=== PATIENT | male | born 1970 | race African-American/Black ===

== ENCOUNTER 2018-05-05 05:27 | Inpatient (IN) | payer OTHER ==
[~2018-05-05] VITALS: Ht 190.5 cm; Wt 140.8 kg
--- NOTE | 2018-05-05 05:49 | PHYS DOC ---
Adult General Chief Complaint Chief Complaint: TOE PROBLEM HPI HPI 47-year-old male presents via EMS with right great toe swelling and drainage. The patient was recently [facility]. While in penitentiary, but he developed an infection in his lateral right great toe. He believes the wound started as a ruptured blister from running in boots. He was treated with oral antibiotics 2 different times. The wound was also being lanced by a pit clerk. The patient is unsure what the antibiotic was called. It has been swollen and painful for "several weeks". He did not realize that it was having drainage until yesterday. He denies fever or chills. The patient is a diabetic on metformin and insulin. He also has hypertension for which he takes 3 medications. He was discharged from penitentiary with 30 day supply of each of these and states taking them daily as prescribed. He was not discharged with any antibiotics. He states that this toe was x-rayed in February and he did not have osteomyelitis at that time. Review of Systems Review of Systems Constitutional: Denies fever or chills [] Eyes: Denies change in visual acuity, redness, or eye pain [] HENT: Denies nasal congestion or sore throat [] Respiratory: Denies cough or shortness of breath [] Cardiovascular: No additional information not addressed in HPI [] GI: Denies abdominal pain, nausea, vomiting, bloody stools or diarrhea [] : Denies dysuria or hematuria [] Musculoskeletal: Denies back pain or joint pain [] Integument: Lesion on right great toe[] Neurologic: Denies headache, focal weakness or sensory changes [] Endocrine: Denies polyuria or polydipsia [] All other systems were reviewed and found to be within normal limits, except as documented in this note. Allergies Allergies Allergies Coded Allergies Type Severity Reaction Last Updated Verified No Known Drug Allergies 05/05/18 No Physical Exam Physical Exam Constitutional: Well developed, well nourished, no acute distress, non-toxic appearance. [] HENT: Normocephalic, atraumatic, bilateral external ears normal, oropharynx moist, no oral exudates, nose normal. [] Eyes: PERRLA, EOMI, conjunctiva normal, no discharge. [] Neck: Normal range of motion, no tenderness, supple, no stridor. [] Cardiovascular:Heart rate regular rhythm, no murmur [] Lungs & Thorax: Bilateral breath sounds clear to auscultation [] Abdomen: Bowel sounds normal, soft, no tenderness, no masses, no pulsatile masses. [] Skin: Lateral right great toe is erythematousand swollen with an open wound and purulent drainage. It is hot to the touch.[] Back: No tenderness, no CVA tenderness. [] Extremities: No tenderness, no cyanosis, no clubbing, ROM intact, no edema. [] Neurologic: Alert and oriented X 3, normal motor function, normal sensory function, no focal deficits noted. [] Psychologic: Affect normal, judgement normal, mood normal. [] EKG EKG [] Radiology/Procedures Radiology/Procedures [] Impressions: My reading: I do not see obvious bony involvement from infection. Course & Med Decision Making Course & Med Decision Making Pertinent Labs and Imaging studies reviewed. (See chart for details) Labs are unremarkable. The patient does not have a fever. Given the fact that the patient is diabetic and he has failed 2 antibiotic regimens orally, I feel as though IV antibiotics are warranted. I discussed the patient with hospitalist , Dr. Shepard and he has agreed to admit the patient for further management. We will start him on vancomycin and Zosyn. The lesion is already spontaneously draining so an incision and drainage is not warranted at this time. [] Dragon Disclaimer Dragon Disclaimer This electronic medical record was generated, in whole or in part, using a voice recognition dictation system. Departure Departure: Referrals: PCP,JAVIER (PCP) NOMI MENENDEZ DO May 05, 2018 05:49
[2018-05-05 05:57] LABS: BASO # 0.1 x10^3/uL (0.0-0.2); BASO % 1 % (0-3); EOS # 0.1 x10^3/uL (0.0-0.7); EOS % 2 % (0-3); HEMATOCRIT 41.9 % (39.0-53.0); HEMOGLOBIN 14.5 g/dL (13.0-17.5); LYMPH # 1.5 x10^3/uL (1.0-4.8); LYMPH % 20 % (24-48); MEAN CORPUSCULAR HEMOGLOBIN 26 pg (25-35); MEAN CORPUSCULAR HGB CONC 35 g/dL (31-37); MEAN CORPUSCULAR VOLUME 76 fL (79-100); MONO # 0.9 x10^3/uL (0.0-1.1); MONO % 12 % (0-9); NEUT # 4.9 x10^3uL (1.8-7.7); NEUT % 66 % (31-73); PLATELET COUNT 230 x10^3/uL (140-400); RED BLOOD COUNT 5.56 x10^6/uL (4.30-5.70); RED CELL DISTRIBUTION WIDTH 16.8 % (11.5-14.5); WHITE BLOOD COUNT 7.5 x10^3/uL (4.0-11.0)
[2018-05-05 05:59] LABS: CALCIUM 8.8 mg/dL (8.5-10.1); CREATININE 0.9 mg/dL (0.7-1.3); GFR 109.9; POTASSIUM 3.5 mmol/L (3.5-5.1)
[2018-05-05] MEDS ORDERED: PIPERACILLIN/TAZOBACTAM 4.5 GM VIAL IV ONE (06:10)
[2018-05-05] MEDS ORDERED: IV NORMAL SALINE 50ML 50 ML ONE (06:10)
[2018-05-05] MEDS ORDERED: MORPHINE SULFATE 2 MG/ML DISP.SYRIN. IV PRN (06:15)
[2018-05-05] MEDS ORDERED: ONDANSETRON PF 4 MG/2 ML VIAL. IV PRN (06:15)
[2018-05-05] MEDS ORDERED: IV NORMAL SALINE 1,000ML 1,000 ML IV ONE (06:15)
--- NOTE | 2018-05-05 06:16 | RAD ---
Right great toe 3 views. HISTORY: Right great toe wound, evaluate for osteomyelitis. 3 views were taken of the right great toe. There is soft tissue swelling. There is no fracture or bony destructive process. There is a wound on the medial toe. IMPRESSION: 1. Soft tissue swelling right great toe. 2. No fracture or bony destructive process at this time. Electronically signed by: Connor Kitchen MD (05/05/2018 6:12 AM) [facility]
[2018-05-05] MEDS ORDERED: PIPERACILLIN/TAZOBACTAM 4.5 GM in IV NORMAL SALINE 50ML 50 ML IV ONE (06:30)
[2018-05-05] MEDS ORDERED: IV NORMAL SALINE 500ML 500 ML ONE (06:48)
[2018-05-05] MEDS ORDERED: VANCOMYCIN 1 GM VIAL. ONE ×2 (06:49→07:18)
[2018-05-05 07:00] VITALS: BP 142/66
[2018-05-05] MEDS ORDERED: VANCOMYCIN 2 GM in IV NORMAL SALINE 500ML 500 ML IV ONE ×2 (07:00→15:00)
[2018-05-05] MEDS ORDERED: DEXTROSE 50% 25 GM / 50ML DISP.SYRIN. IV PRN ×2 (10:00→12:45)
--- NOTE | 2018-05-05 10:38 | HP ---
ADMIT DATE: 05/05/2018 HISTORY OF PRESENT ILLNESS: This is a 47-year-old -[place] male patient, who currently at [facility], who came to the Emergency Room by the emergency medical service personnel with right great toe swelling and drainage. The patient was recently released from jail. Apparently, while in jail, he developed an infection in his lateral right great toe. It started as blister that ruptured from running in boots. He was seen by the interior plant caretaker there and was treated with oral antibiotic 2 different times and the wound was lanced by a interior plant caretaker. He does not recall the names of the antibiotic that he has received. Apparently, his great toe was swollen and therefore several weeks; however, he was supposed to have an MRI of his right big toe; however, he was released before that happened and has been doing fine up until yesterday when he started complaining of pain and drainage; however, he denied any chills, rigors, or fever. He was evaluated in the Emergency Room and was admitted for treatment with IV antibiotic for infected right big toe. PAST MEDICAL HISTORY: His past medical history is significant for hypertension, type 2 diabetes as well as diabetic peripheral neuropathy. PAST SURGICAL HISTORY: Unremarkable. ALLERGIES: He has no known drug allergies. MEDICATIONS: He is currently on amlodipine 5 mg once a day, lisinopril 5 mg once a day, hydrochlorothiazide 25 mg once a day, metformin 1000 mg twice a day. He is also on insulin, Humalog insulin scheduled, and sliding scale. FAMILY HISTORY: He has 1 brother and sister, both younger and healthy. His both parents are still alive in their early 60s and healthy. SOCIAL HISTORY: He is , has no children. He continues to smoke but does not drink alcohol or use any recreational drugs. REVIEW OF SYSTEMS: As per history of present illness. PHYSICAL EXAMINATION: GENERAL: When I examined him, he looked well and was clearly in no apparent respiratory distress. No pallor, jaundice, cyanosis, or thyromegaly. No jugular venous distension. No lower limb edema. VITAL SIGNS: His heart rate was 69, blood pressure was 142/66, temperature was 98.3, respiratory rate 22, and oxygen saturation was 98% on room air. HEENT: Examination of the head, eyes, ears, nose and throat showed normocephalic, atraumatic. NECK: Supple. HEART: Showed normal first and second heart sounds with no gallop, rub or murmur. CHEST: Clear to auscultation. No crepitation or rhonchi. ABDOMEN: Distended, soft, nontender. No guarding or rigidity. No organomegaly. Hernial orifices were intact. Bowel sounds normal. NEUROLOGIC: He was awake, alert, responding appropriately. Cranial nerves are intact. EXTREMITIES: He moves extremities without difficulty, ambulates without assistance or assistive devices. LABORATORY AND DIAGNOSTIC DATA: His lab work on admission showed a white cell count of 7500, hemoglobin 14.5, hematocrit 42, MCV 76, and platelet count 230,000 with normal manual differential. His chemistry showed a serum sodium 135, potassium 3.5, chloride 102, bicarbonate 29, anion gap of 4, BUN 18, creatinine 0.9, estimated GFR was 110 mg/dL, glucose was 197, and calcium was 8.8. The x-ray of his right big toe showed there is soft tissue swelling. There is no fracture or bony destructive process. There is a wound on the medial toe. IMPRESSION: So, in summary, this is a 47-year-old -[place] male patient with infected right big toe. The x-ray did not show evidence of bony destruction or osteomyelitis. PLAN: The plan is, he was admitted to continue with IV antibiotic in the form of Zosyn and vancomycin, continue with pain management, continue to monitor his blood sugar and adjust insulin as needed. I will arrange for him to have a CT scan of his right big toe and decide on further management accordingly. SABINE RICKS MD DR: NE/eulalio JOB#: [id number] / [id number]
[2018-05-05 11:00] VITALS: BP 161/109
[2018-05-05] MEDS: hydroCHLOROthiazide 25 MG TABLET PO SCH (11:00)
[2018-05-05] MEDS ORDERED: LISINOPRIL 5 MG TABLET. PO SCH (11:00)
[2018-05-05] MEDS ORDERED: VANCOMYCIN PER PHARMACY MC PRN (11:45)
--- NOTE | 2018-05-05 11:57 | NUR ---
Pharmacy Vancomycin Dosing Note S:Consulted to monitor and dose vancomycin started 05/05/18. O:CEE ESCOBAR is a 47 year old M with Cellulitis . Height: 6 feet, 3 inches Weight: 141.6 kg [place] Body Weight: Adjusted Body Weight: Dosing Weight: Actual Other Antibiotics: ZOSYN 3.375 Q8HRS LABS: Last BUN: 18 Last Creatinine: 0.9 Creatinine Clearance: Last WBC: 7.5 Last Platelets: 230 Tmax (past 24 hours): Microbiology: I/O: Drug Levels: Last level: on at Last dose given 05/05/18 at 0700 Vancomycin Dosing: Loading Dose: 2000 mg x1 Dosing Weight: Actual Target Trough: 10-20 A: Based on: P: 1. Begin Vancomycin 2000 mg IV q8h 2. Follow up Trough level on 05/06/18 at 0630 3. Pharmacy will continue to monitor, follow and adjust therapy as needed. LIZZ KELLEY RPH, 05/05/18 [id number]
[2018-05-05] MEDS ORDERED: INSULIN LISPRO 300 UNITS/3 ML INSULN.PEN. SQ SCH (12:00)
[2018-05-05] MEDS: metFORMIN 500 MG TABLET PO SCH ×2 (12:16→16:46)
--- NOTE | 2018-05-05 12:31 | RAD ---
Examination: CT of the right foot without contrast HISTORY: History of big toe infection for 6 months, diabetes COMPARISON: None available Exposure: One or more of the following individualized dose reduction techniques were utilized for this examination: 1. Automated exposure control 2. Adjustment of the mA and/or kV according to patient size 3. Use of iterative reconstruction technique TECHNIQUE: Axial CT images of the right foot were performed without contrast. Coronal and sagittal deformities are performed FINDINGS: The alignment of the tarsal bones, tarsometatarsal joints, tarsophalangeal joints grossly appears unremarkable. There is mild soft tissue swelling identified medial to the right big toe with small foci of air within could be soft tissue infection or ulcer. No evidence of cortical disruption identified on the CT scan. Small hypodensity identified in the calcaneus probably a vascular channel IMPRESSION: Mild soft tissue swelling identified medial to the right big toe with small foci of air within the soft tissue could be soft tissue infection or ulcer. No evidence of cortical disruption identified on the CT scan. Electronically signed by: Emanuel Kulkarni MD (05/05/2018 12:27 PM) [facility]
[2018-05-05] MEDS: amLODIPine BESYLATE 10 MG TABLET PO SCH (13:22)
[2018-05-05] MEDS: LISINOPRIL 20 MG TABLET PO SCH (13:23)
--- NOTE | 2018-05-05 13:26 | HP ---
ADMIT DATE: 05/05/2018 NO DICTATION. SABINE RICKS MD DR: NE/eulalio JOB#: [id number] / [id number]
[2018-05-05] MEDS: PIPERACILLIN/TAZOBACTAM 3.375 GM in IV NORMAL SALINE 50ML 50 ML IV SCH ×2 (14:50→21:54)
[2018-05-05 15:00] VITALS: BP 177/117
[2018-05-05] MEDS: INSULIN LISPRO 300 UNITS/3 ML INSULN.PEN. SQ SCH (17:46)
[2018-05-05 19:26] VITALS: BP 155/104
--- NOTE | 2018-05-05 19:35 | NUR ---
Pt admitted to med surg d/t ulcer on right big toe. Pt brought to unit by EMS via gurney. Pt vitals, med hx, head to toe assess completed. Pt given unit routines. Pt resting comfortably.
[2018-05-05] MEDS ORDERED: hydrALAZINE 20 MG/ML VIAL. IV PRN (19:45)
[2018-05-05] MEDS: LORazepam 0.5 MG TABLET PO PRN (20:17)
[2018-05-05 22:34] VITALS: BP 164/83
[2018-05-06] MEDS ORDERED: METF10003 PO (01:48)
[2018-05-06] MEDS ORDERED: HYDR25TA9 PO (01:48)
[2018-05-06] MEDS ORDERED: INSU100V11 SQ ×2 (01:48)
[2018-05-06] MEDS ORDERED: LISI40TA PO (01:48)
[2018-05-06] MEDS ORDERED: ATOR40TA59 PO (01:48)
[2018-05-06] MEDS ORDERED: ACYC400T PO (01:48)
[2018-05-06] MEDS ORDERED: NPH,100V5 SQ ×2 (01:48)
[2018-05-06] MEDS ORDERED: AMLO10TA2 PO (01:48)
[2018-05-06] MEDS: PIPERACILLIN/TAZOBACTAM 3.375 GM in IV NORMAL SALINE 50ML 50 ML IV SCH ×3 (05:37→22:02)
[2018-05-06 05:39] VITALS: BP 143/84
[2018-05-06 06:53] LABS: VANC TR 6.8 mcg/mL (10.0-20.0)
[2018-05-06 06:55] LABS: ALBUMIN 3.1 g/dL (3.4-5.0); ALBUMIN/GLOBULIN RATIO 0.9 (1.0-1.7); CALCIUM 8.9 mg/dL (8.5-10.1); CREATININE 0.9 mg/dL (0.7-1.3); GFR 109.9; POTASSIUM 3.7 mmol/L (3.5-5.1); TOTAL BILIRUBIN 0.7 mg/dL (0.2-1.0); TOTAL PROTEIN 6.7 g/dL (6.4-8.2)
[2018-05-06] MEDS: INSULIN LISPRO 300 UNITS/3 ML INSULN.PEN. SQ SCH ×3 (08:00→16:55)
[2018-05-06] MEDS: metFORMIN 500 MG TABLET PO SCH ×2 (08:00→16:50)
[2018-05-06] MEDS: amLODIPine BESYLATE 10 MG TABLET PO SCH (09:00)
[2018-05-06] MEDS: LISINOPRIL 20 MG TABLET PO SCH (09:00)
[2018-05-06] MEDS: hydroCHLOROthiazide 25 MG TABLET PO SCH (09:00)
[2018-05-06] MEDS ORDERED: amLODIPine BESYLATE 5 MG TABLET PO SCH (09:00)
--- NOTE | 2018-05-06 09:34 | NUR ---
PHARMACY NOTE: VANCOMYCIN The vancomycin doses were not ordered/given correctly to give an accurate trough. The vanco trough will be reordered. Signed: 05/06/18 at 0936 by MISTY KING
[2018-05-06] MEDS: VANCOMYCIN 2 GM in IV NORMAL SALINE 500ML 500 ML IV SCH ×2 (09:51→17:32)
[2018-05-06 10:26] VITALS: BP 134/82
--- NOTE | 2018-05-06 14:27 | PN ---
DATE: 05/06/2018 SUBJECTIVE: The patient was admitted yesterday with an infected right big toe. His x-ray and CT scan showed no evidence of osteomyelitis; however, he has some mild soft tissue swelling identified medial to the right big toe with small foci of air within the soft tissue that could be the soft tissue infection or ulcer. No evidence of cortical disruption identified on the CT scan. My plan is to continue with IV antibiotic in the form of vancomycin and Zosyn for another 24 hours and tomorrow, we will switch him to oral antibiotic. The patient can be discharged to continue treatment as an outpatient. OBJECTIVE: GENERAL: When I examined him today, he looked well and was clearly in no apparent respiratory distress. No pallor, jaundice, cyanosis, lymphadenopathy or thyromegaly. No jugular venous distension. No limb edema. VITAL SIGNS: Her heart rate was 75, blood pressure 134/82, temperature was 97.9, respiratory rate 20, and oxygen saturation was 99%. HEAD, EYES, EARS, NOSE AND THROAT: Showed normocephalic, atraumatic. NECK: Supple. HEART: Showed normal first and second sounds. No gallop, rub or murmur. CHEST: Clear to auscultation. No crepitation or rhonchi. ABDOMEN: Distended, soft, nontender. No guarding or rigidity. No organomegaly. Hernial orifice intact. Bowel sounds normal. NEUROLOGIC: He was awake, alert, responding appropriately. Cranial nerves intact. He moves extremities without difficulty. He ambulates without assistance or assistive devices. He has swelling and tenderness in the medial aspect of the right big toe with an ulcer that is dry with no drainage. LABORATORY DATA: Showed a white cell count 7500, hemoglobin 14, hematocrit 42, MCV 76 and platelet count 230,000. His sedimentation rate was only 5 mm per hour. His chemistry showed a serum sodium of 140, potassium 3.7, chloride 104, bicarbonate 31, anion gap of 5, BUN 14, creatinine 0.9, estimated GFR was 110 mL per minute, his glucose 199, calcium was 8.9. Total protein 6.7, albumin 3.1. Total bilirubin, AST, ALT, alkaline phosphatase were normal. C-reactive protein was 7.5 mg/dL. ASSESSMENT: 1. Right big toe cellulitis. 2. Type 2 diabetes. 3. Hypertension. 4. Peripheral neuropathy. PLAN: Continue IV antibiotic today and tomorrow, we will switch him to oral antibiotic, can be discharged back ____ to continue treatment as an outpatient. SABINE RICKS MD DR: NE/eulalio JOB#: [id number] / [id number]
[2018-05-06 15:10] VITALS: BP 122/92
--- NOTE | 2018-05-06 16:50 | NUR ---
Wound Care Wound care consult for DFU to R great toe. Pt has open ulcer to R great toe that he states has been ther for 6 months+ and that a bit sharpener was seeing him while incarcerated. Discussed follow up in [facility], pt is agreeable, will call him tomorrow to set up outpatient visit. Cleansed and measured wound. Dressed with xeroform gauze and gauze pad, recommend to change every 2 days. Pt verbalizes understanding of POC. No other wounds found on full skin inspection. Pt educated on PU prevention.
[2018-05-06 19:28] VITALS: BP 155/92
[2018-05-06] MEDS: LORazepam 0.5 MG TABLET PO PRN (21:21)
[2018-05-06] MEDS: LACTOBACILLUS RHAMNOSUS GG 1 CAPSULE. PO SCH (21:21)
[2018-05-06 22:24] VITALS: BP 146/88
[2018-05-07] MEDS: VANCOMYCIN 2 GM in IV NORMAL SALINE 500ML 500 ML IV SCH ×2 (00:43→08:01)
[2018-05-07 05:25] VITALS: BP 151/97
[2018-05-07] MEDS: PIPERACILLIN/TAZOBACTAM 3.375 GM in IV NORMAL SALINE 50ML 50 ML IV SCH (05:44)
[2018-05-07] MEDS: LISINOPRIL 20 MG TABLET PO SCH (07:56)
[2018-05-07] MEDS: LACTOBACILLUS RHAMNOSUS GG 1 CAPSULE. PO SCH (07:56)
[2018-05-07] MEDS: metFORMIN 500 MG TABLET PO SCH (07:56)
[2018-05-07] MEDS: amLODIPine BESYLATE 10 MG TABLET PO SCH (07:57)
[2018-05-07] MEDS: hydroCHLOROthiazide 25 MG TABLET PO SCH (07:57)
[2018-05-07] MEDS: INSULIN LISPRO 300 UNITS/3 ML INSULN.PEN. SQ SCH (07:58)
[2018-05-07 10:53] VITALS: BP 152/91
[2018-05-07] MEDS ORDERED: CEPH-264 PO (11:31)
--- NOTE | 2018-05-07 12:06 | NUR ---
NSG NOTE DISCHARGE NOTE PT DISCHARGED TO [facility] AT 1200 VIA AMBULATION ACCOMPANIED BY SELF. VERBAL AND WRITTEN DISCHARGE INSTRUCTIONS GIVEN TO PT WITH VERBAL INSTRUCTIONS. HAND SCRIPTS GIVEN TO PT. SN GIOVANNA
--- NOTE | 2018-05-07 13:48 | DS ---
DATE OF DISCHARGE: 05/07/2018 HOSPITAL COURSE: The patient is a 47-year-old -[place] male patient who was admitted with left big toe cellulitis. He is currently at the [facility]. He was recently released from jail where he was treated with multiple courses of antibiotic for infected left big toe. We did start him on IV vancomycin as well as Zosyn. The x-ray of his right big toe showed the soft tissue swelling, right great toe. No fracture or bony destructive process that was seen. CT scan of his left big toe showed that the alignment of the tarsal bones, tarsometatarsal joint, tarsophalangeal joints grossly appears unremarkable. There is mild soft tissue swelling identified medial to the right big toe with small foci of air within that could be soft tissue infection or ulcer. No evidence of cortical disruption identified on CT scan. The patient did well. He remained hemodynamically stable, afebrile throughout his stay. His white cell count was normal at 7.5. His sedimentation rate was only 5 mm per hour and C-reactive protein was 7.5 mg/dL and a decision was made to discharge him back to [facility] to continue on oral antibiotic in the form of Keflex 500 mg 3 times a day. He was advised to hold his metformin for the 10 days. He finished antibiotic treatment and used only the insulin. PHYSICAL EXAMINATION: GENERAL: When I saw him today, he looked well and was clearly in no apparent respiratory distress, pale, but no jaundice, cyanosis, or thyromegaly. No jugular venous distention. No limb edema. VITAL SIGNS: His heart rate was 73, blood pressure 151/97, temperature was 98, respiratory rate 20, and oxygen saturation was 96%. The rest of clinical examination is stable. LABORATORY DATA: His lab work showed a white cell count of 7500, hemoglobin 14.5, hematocrit 42, MCV 76 and platelet count of 230,000. His chemistry showed a serum sodium 140, potassium 3.7, chloride 104, bicarbonate 31, anion gap of 5, BUN 14, creatinine 0.9, estimated GFR was 110 mL per minute. His glucose was 199, calcium was 8.9. Total bilirubin, AST, ALT, alkaline phosphatase were normal. Total protein 6.7, albumin 3.1. DISCHARGE MEDICATIONS: The patient was discharged home to continue on Keflex 500 mg 3 times a day for 10 days, acyclovir 400 mg daily for herpes simplex, amlodipine besylate 10 mg once a day, atorvastatin 40 mg at bedtime, hydrochlorothiazide 25 mg daily, regular insulin 6 units before meals, before supper and 12 units before breakfast. He is also on NPH, Novolin N insulin 20 units at bedtime and 31 units with breakfast. He is also on lisinopril 40 mg daily for high blood pressure, metformin 1000 mg daily with breakfast. FINAL DISCHARGE DIAGNOSES: Left big toe cellulitis, no evidence of osteomyelitis, hypertension, hyperlipidemia, type 2 diabetes, herpes simplex. SABINE RICKS MD DR: NE/eulalio JOB#: [id number] / [id number]
[2018-05-07 22:16] LABS: HEMOGLOBIN A1C 7.6 % (4.8-5.6)
== END 2018-05-07 12:00 | disposition home or self-care (01) | DRG 603 ==
LOC: ER 05:27 → 1 SOUTH 06:15
PROVIDERS: ADMIT Internal Medicine; ATTEND Internal Medicine
DX: L03.031 Cellulitis of right toe (principal); E11.42 Type 2 diabetes mellitus with diabetic polyneuropathy; I10 Essential (primary) hypertension; F17.200 Nicotine dependence, unspecified, uncomplicated; Z79.84 Long term (current) use of oral hypoglycemic drugs
CPT/HCPCS: 36415; 73660; 73700; 80048; 80053; 80202; 82947; 83036; 85025; 85651; 86140; 87070; 87641; 96365; 96367; J1815; J2543; J3370; J7040; 99285-25; J7030

== ENCOUNTER 2018-09-25 21:03 | Emergency (ER) | payer SELFPAY ==
[~2018-09-25] VITALS: Ht 190.5 cm; Wt 126.6 kg
[~2018-09-25 21:03] MED LIST: ACYC400T PO; AMLO10TA6 PO; ATOR40TA59 PO; CEPH-264 PO; HYDR-2145 PO; INSU100V11 SQ; LISI40TA PO; METF10007 PO; NPH,100V5 SQ
--- NOTE | 2018-09-25 21:28 | PHYS DOC ---
Past History Past Medical History: Diabetes, Hypertension Past Surgical History: No Surgical History Alcohol Use: None Drug Use: None Adult General Chief Complaint Chief Complaint: FOOT INJURY PAIN HPI HPI Patient is a 47 year old male who presents with complaint of right great toe swelling and pain. Patient states that he has a diabetic ulcer to the right great toe which she has had over the past year. Patient states that he had been attending the wound clinic at [facility] over the past year and had been having improvement in symptoms, however he states that he has stopped going over the past several months. Patient states within the last month he has had worsening swelling and pain and has had foul-smelling drainage from his wound. Denies fevers, lightheadedness, dizziness, nausea, or vomiting. Has noted swelling to the right foot but denies any redness or lymphangitic streaking. Review of Systems Review of Systems Constitutional: Denies fever or chills [] Eyes: Denies change in visual acuity, redness, or eye pain [] HENT: Denies nasal congestion or sore throat [] Respiratory: Denies cough or shortness of breath [] Cardiovascular: Denies chest pain or edema[] GI: Denies abdominal pain, nausea, vomiting, bloody stools or diarrhea [] : Denies dysuria or hematuria [] Musculoskeletal: Right great toe swelling and pain[] Integument: Diabetic ulcer to right great toe[] Neurologic: Denies headache, focal weakness or sensory changes [] All other systems were reviewed and found to be within normal limits, except as documented in this note. Current Medications Current Medications Current Medications Medications (Trade) Dose Ordered Sig/[facility] Start Time Stop Time Status Last Admin Dose Admin Ampicillin Sodium/ Sulbactam Sodium 3 gm/Sodium Chloride 100 ml @ 200 mls/hr 1X ONCE 09/25/18 21:30 09/25/18 21:59 UNV Sodium Chloride 1,000 ml @ 125 mls/hr Q8H 09/25/18 21:21 09/26/18 05:20 UNV Allergies Allergies Allergies Coded Allergies Type Severity Reaction Last Updated Verified No Known Drug Allergies 05/05/18 No Physical Exam Physical Exam Constitutional: Alert, afebrile, nontoxic appearance. [] HENT: Normocephalic, atraumatic, bilateral external ears normal, oropharynx moist, no oral exudates, nose normal. [] Eyes: PERRLA, EOMI, conjunctiva normal, no discharge. [] Neck: Normal range of motion, no tenderness, supple, no stridor. [] Cardiovascular:Heart rate regular rhythm, no murmur [] Lungs & Thorax: Bilateral breath sounds clear to auscultation [] Abdomen: Bowel sounds normal, soft, no tenderness, no masses, no pulsatile masses. [] Skin: Warm, dry, 4 cm ulcerative lesion to the right great toe with moderate to severe soft tissue swelling of the right great toe, tenderness to palpation. [] Back: No tenderness, no CVA tenderness. [] Extremities: Moderate to severe right great toe swelling with tenderness to palpation, no lymphangitic streaking, no cyanosis, no clubbing, ROM intact, no edema. [] Neurologic: Alert and oriented X 3, normal motor function, normal sensory function, no focal deficits noted. [] Current Patient Data Vital Signs Vital Signs Date Time Temp Pulse Resp B/P (MAP) Pulse Ox O2 Delivery O2 Flow Rate FiO2 09/25/18 21:05 98.9 93 18 100 Room Air Lab Results Laboratory Tests Test 09/25/18 21:45 White Blood Count 7.8 x10^3/uL Red Blood Count 4.39 x10^6/uL Hemoglobin 8.3 g/dL Hematocrit 26.0 % Mean Corpuscular Volume 59 fL Mean Corpuscular Hemoglobin 19 pg Mean Corpuscular Hemoglobin Concent 32 g/dL Red Cell Distribution Width 25.7 % Platelet Count 355 x10^3/uL Neutrophils (%) (Auto) % Lymphocytes (%) (Auto) % Monocytes (%) (Auto) % Eosinophils (%) (Auto) % Basophils (%) (Auto) % Neutrophils # (Auto) x10^3uL Lymphocytes # (Auto) x10^3/uL Monocytes # (Auto) x10^3/uL Eosinophils # (Auto) x10^3/uL Basophils # (Auto) x10^3/uL Segmented Neutrophils % 49 % Lymphocytes % 37 % Atypical Lymphocytes % (Manual) 5 % Monocytes % 7 % Eosinophils % 2 % Platelet Estimate Adequate Hypochromasia Mod Anisocytosis Mod Microcytosis Slight Target Cells Few Erythrocyte Sedimentation Rate Pending Sodium Level 136 mmol/L Potassium Level 3.7 mmol/L Chloride Level 100 mmol/L Carbon Dioxide Level 23 mmol/L Anion Gap 13 Blood Urea Nitrogen 17 mg/dL Creatinine 0.9 mg/dL Estimated GFR (Cockcroft-Gault) 109.9 Glucose Level 382 mg/dL Calcium Level 8.5 mg/dL C-Reactive Protein 1.0 mg/L Current Medications Medications (Trade) Dose Ordered Sig/Gia Route PRN Reason Start Time Stop Time Status Last Admin Dose Admin Sodium Chloride 1,000 ml @ 125 mls/hr Q8H IV 09/25/18 21:30 09/26/18 05:29 09/25/18 21:51 Ampicillin Sodium/ Sulbactam Sodium 3 gm/Sodium Chloride 100 ml @ 200 mls/hr 1X ONCE IV 09/25/18 21:30 09/25/18 21:59 DC 09/25/18 21:48 Fentanyl Citrate (Fentanyl 2ml Vial) 50 mcg 1X ONCE IM 09/25/18 23:00 09/25/18 23:01 DC Ondansetron HCl (Zofran) 4 mg 1X ONCE IV 09/25/18 23:00 09/25/18 23:01 DC 09/25/18 23:07 EKG EKG Not performed[] Radiology/Procedures Radiology/Procedures 3 view right foot x-ray interpreted by me: Moderate to severe soft tissue swelling of the right great toe, osteoid reaction near the medial aspect of great toe raising concern for early osteomyelitis, no extensive gas formation and soft tissue[] Course & Med Decision Making Course & Med Decision Making Pertinent Labs and Imaging studies reviewed. (See chart for details) Patient was started on Unasyn and pain was treated with IV fentanyl. X-rays show concern for early osteomyelitis. Given findings, I believe the patient would benefit from a higher level of care including orthopedic consult for further evaluation. For this reason, the patient will be transferred to [facility] for further care. I spoke with Dr. Rucker, hospitalist , who accepted care of patient. Patient will be transferred by ground ambulance. Dragon Disclaimer Dragon Disclaimer This electronic medical record was generated, in whole or in part, using a voice recognition dictation system. Departure Departure: Impression: Primary Impression: Osteomyelitis of toe of right foot Additional Impression: Type II diabetes mellitus Disposition: SHT-TRM HOSP Condition: STABLE Referrals: PCP,NO (PCP) Problem Qualifiers Additional Impression: Type II diabetes mellitus Diabetes mellitus termite control service representative insulin use: unspecified senior care insulin use status Diabetes mellitus complication status: with skin complications Diabetes mellitus complication detail: with foot ulcer Qualified Codes: E11.621 - Type 2 diabetes mellitus with foot ulcer; L97.509 - Non-pressure chronic ulcer of other part of unspecified foot with unspecified severity ISIAH ROCKWELL MD Sep 25, 2018 21:28
[2018-09-25] MEDS ORDERED: AMPICILLIN/SULBACTAM 3 GM in IV NORMAL SALINE 100ML 100 ML IV ONE (21:30)
[2018-09-25] MEDS ORDERED: IV NORMAL SALINE 1,000ML 1,000 ML IV SCH (21:30)
[2018-09-25 22:16] LABS: HEMOGLOBIN 8.3 g/dL (13.0-17.5); MEAN CORPUSCULAR HEMOGLOBIN 19 pg (25-35); MEAN CORPUSCULAR HGB CONC 32 g/dL (31-37); MEAN CORPUSCULAR VOLUME 59 fL (79-100); PLATELET COUNT 355 x10^3/uL (140-400); RED BLOOD COUNT 4.39 x10^6/uL (4.30-5.70); RED CELL DISTRIBUTION WIDTH 25.7 % (11.5-14.5); WHITE BLOOD COUNT 7.8 x10^3/uL (4.0-11.0)
[2018-09-25 22:29] LABS: CALCIUM 8.5 mg/dL (8.5-10.1); CREATININE 0.9 mg/dL (0.7-1.3); GFR 109.9; POTASSIUM 3.7 mmol/L (3.5-5.1)
[2018-09-25 22:55] LABS: % EOS 2 % (0-5); % LYMPHS 37 % (24-48); % MONOS 7 % (0-10); % SEGS 49 % (35-66)
[2018-09-25 22:56] LABS: PLT ESTIMATE ADEQUATE (ADEQUATE); TARGET CELLS FEW
[2018-09-25 22:57] LABS: ANISOCYTOSIS MOD; HYPOCHROMIA MOD; MICROCYTOSIS SLIGHT
[2018-09-25 23:00] LABS: % ATYL 5 % (0-0)
[2018-09-25] MEDS ORDERED: ONDANSETRON PF 4 MG/2 ML VIAL. IV ONE (23:00)
[2018-09-25 23:30] LABS: SEDIMENTATION RATE 4 (0-15)
[2018-09-25] MEDS ORDERED: VANCOMYCIN 1 GM in IV NORMAL SALINE 250ML 250 ML IV ONE (23:45)
[2018-09-25 23:46] VITALS: BP 159/82
[2018-09-25] MEDS ORDERED: VANCOMYCIN 1 GM VIAL. ONE (23:55)
[2018-09-25] MEDS ORDERED: IV NORMAL SALINE 250ML 250 ML ONE (23:57)
--- NOTE | 2018-09-26 00:30 | RAD ---
Examination: FOOT RIGHT 3V History: DIABETIC ULCER ON RIGHT FOOT, GREAT TOE Comparison/Correlation: None Findings: Total 3 images of the right foot were obtained. Small calcaneal spur is present. Soft tissue swelling of the great toe is noted. Soft tissue ulceration along the plantar aspect of the great toe is noted. Impression: Soft tissue swelling of the great toe. No bony destruction. Consider further imaging if osteomyelitis is a persistent concern. Electronically signed by: Mark Ortiz MD (09/26/2018 12:27 AM) [facility] [id number]
== END 2018-09-26 00:45 | disposition short-term general hospital (02) ==
LOC: ER 21:03
DX: E11.69 Type 2 diabetes mellitus with other specified complication (principal); M86.8X7 Other osteomyelitis, ankle and foot; E11.621 Type 2 diabetes mellitus with foot ulcer; L97.509 Non-pressure chronic ulcer of other part of unspecified foot with unspecified severity; I10 Essential (primary) hypertension
CPT/HCPCS: 36415; 73630; 80048; 85007; 85025; 85651; 86140; 87040; 96365; 96367; 96375; 99285; J0295; J2405; J3010; J3370; J7050; J7030